=== PATIENT | male | born 1965 | race Caucasian/White ===

== ENCOUNTER 2018-03-29 09:33 | Outpatient (REF) | payer BC, SELFPAY ==
[2018-03-29 23:26] LABS: ALT 39 U/L (12-78); AST 21 U/L (15-37); Albumin 4.2 g/dL (3.4-5.0); Alkaline Phosphatase 78 U/L (46-116); Anion Gap 10.8 mmol/L (3-11); BUN 17 mg/dL (7-18); Bilirubin, Total 0.4 mg/dL (0.2-1.0); CO2 26.2 mmol/L (21.0-32.0); CREATININE 0.92 mg/dL (0.70-1.30); Calcium 9.1 mg/dL (8.5-10.1); Chloride 104 mmol/L (98-107); Cholesterol 207 mg/dL (50-200); Glucose 103 mg/dL (70-100); HDL Cholesterol 47 mg/dL (40-60); LDL CHOLESTEROL 151 mg/dL (<100); Sodium 141 mmol/L (136-145); Total Protein 7.3 g/dL (6.4-8.2); Triglyceride 91 mg/dL (30-150)
== END 2018-03-29 09:53 ==
LOC: NCHCN 09:33
PROVIDERS: Visit Provider Nurse Practitioner Family
DX: Z00.00 Encounter for general adult medical examination without abnormal findings (principal); Z13.220 Encounter for screening for lipoid disorders
CPT/HCPCS: 80053; 80061; 83721

== ENCOUNTER 2021-01-25 15:39 | Outpatient (REF) | payer BC, SELFPAY ==
[2021-01-25 21:19] LABS: Anion Gap 8.3 mmol/L (3-11); BUN 20 mg/dL (7-18); CO2 27.7 mmol/L (21.0-32.0); CREATININE 0.9 mg/dL (0.70-1.30); Calcium 9.2 mg/dL (8.5-10.1); Calculated LDL 146 mg/dL (<100); Chloride 105 mmol/L (98-107); Cholesterol 221 mg/dL (<200); Glucose 95 mg/dL (74-106); HDL Cholesterol 41 mg/dL (40-60); Potassium 4.2 mmol/L (3.5-5.1); Sodium 141 mmol/L (136-145); Triglyceride 172 mg/dL (<150)
== END 2021-01-25 15:40 | disposition home or self-care (01) ==
LOC: NCHCN 15:39
PROVIDERS: Visit Provider Registered Nurse
DX: Z00.00 Encounter for general adult medical examination without abnormal findings (principal); I10 Essential (primary) hypertension
CPT/HCPCS: 80048; 80061

== ENCOUNTER 2021-07-24 09:25 | Outpatient (REF) | payer BC, SELFPAY ==
[2021-07-24 15:06] LABS: ALT 40 U/L (16-63); AST 19 U/L (15-37); Albumin 3.9 g/dL (3.4-5.0); Alkaline Phosphatase 81 U/L (46-116); Anion Gap 10.1 mmol/L (3-11); BUN 22 mg/dL (7-18); Bilirubin, Total 0.4 mg/dL (0.2-1.0); CO2 24.9 mmol/L (21.0-32.0); CREATININE 0.9 mg/dL (0.70-1.30); Calculated LDL 106 mg/dL (<100); Chloride 104 mmol/L (98-107); Cholesterol 177 mg/dL (<200); Glucose 112 mg/dL (74-106); HDL Cholesterol 40 mg/dL (40-60); Potassium 4.1 mmol/L (3.5-5.1); Sodium 139 mmol/L (136-145); Total Protein 7.1 g/dL (6.4-8.2); Triglyceride 159 mg/dL (<150)
== END 2021-07-24 09:26 | disposition home or self-care (01) ==
LOC: NCHCN 09:25
PROVIDERS: Visit Provider Registered Nurse
DX: I10 Essential (primary) hypertension (principal); E66.9 Obesity, unspecified
CPT/HCPCS: 80053; 80061

== ENCOUNTER 2021-12-13 08:51 | Outpatient (REF) | payer BC, SELFPAY ==
--- NOTE | 2021-12-13 13:35 | SKI_PTH ---
PATIENT: Favio Schultz LOC: [facility]#:[id number] AGE/SX: 56/M ROOM: RE12/13/[address]: Maribell Jaime : 1965 BED: DIS: 12/13/2021 SPEC #: [id number] RECD: 12/16/21 11:18 STATUS: FLAVIO GOMEZ #: [id number] GRAY: 12/13/21 13:[address]: Maribell Jaime DEPT: Surgical Specimen RECD BY: Tyler Ignacio Tissues: 1 - SKIN BIOPSY(SHAVE/PUNCH) Procedures: SKIN LEVEL 4 Comments: [id number]
== END 2021-12-13 08:52 | disposition home or self-care (01) ==
LOC: NCHCN 08:51
PROVIDERS: Visit Provider Registered Nurse
DX: L82.1 Other seborrheic keratosis (principal)
CPT/HCPCS: 88305

== ENCOUNTER 2022-05-09 17:45 | Outpatient (REF) | payer BC, SELFPAY ==
[2022-05-09 15:33] LABS: Anion Gap 4.8 mmol/L (3-11); BUN 20 mg/dL (7-18); CO2 29.2 mmol/L (21.0-32.0); CREATININE 0.9 mg/dL (0.70-1.30); Calcium 8.9 mg/dL (8.5-10.1); Chloride 104 mmol/L (98-107); Estimated GFR 98.38 (mL/min/1.73m2); Glucose 108 mg/dL (74-106); Potassium 4.4 mmol/L (3.5-5.1); Sodium 138 mmol/L (136-145)
== END 2022-05-09 17:46 | disposition home or self-care (01) ==
LOC: NCHCN 17:45
PROVIDERS: Visit Provider Registered Nurse
DX: I10 Essential (primary) hypertension (principal)
CPT/HCPCS: 80048

== ENCOUNTER 2023-02-19 13:19 | Outpatient (REF) | payer BC, SELFPAY ==
[2023-02-19 17:27] LABS: Calculated LDL 78 mg/dL (<100); Cholesterol 139 mg/dL (<200); HDL Cholesterol 43 mg/dL (40-60); Triglyceride 90 mg/dL (<150)
== END 2023-02-19 13:20 | disposition home or self-care (01) ==
LOC: NCHCN 13:19
PROVIDERS: Visit Provider Family Medicine
DX: E78.5 Hyperlipidemia, unspecified (principal)
CPT/HCPCS: 80061

== ENCOUNTER 2023-05-13 15:36 | Outpatient (REF) | payer BC, SELFPAY ==
[2023-05-13 15:47] LABS: Abs Immature Grans 0.05 10^3/uL (0.0-0.06); Absolute Basophil Count 0.04 10^3/uL (0.0-0.2); Absolute Eosinophil Count 0.15 10^3/uL (0.0-0.7); Absolute Lymphocyte Count 1.34 10^3/uL (1.2-3.4); Absolute Monocyte Count 0.59 10^3/uL (0.1-0.8); Absolute Neutrophil Count 5.74 10^3/uL (1.2-6.7); Basophils % 0.5; Eosinophils % 1.9; HCT 46.4 % (40.0-50.0); HGB 15.6 g/dL (13.5-17.5); Immature Grans % 0.6; Lymphocytes % 16.9; MCH 29.4 pg (27.0-33.0); MCHC 33.6 % (32.0-36.0); MCV 88 fL (80-95); MPV 10.2 fL (8.0-11.0); Monocytes % 7.5; Neutrophils % 72.6; Platelet Count 278 10^3/uL (130-400); RDW 12.7 % (11.8-14.1); WBC 7.91 10^3/uL (4.4-10.8)
[2023-05-13 16:04] LABS: Anion Gap 7.8 mmol/L (3-11); BUN 16 mg/dL (7-18); CO2 27.2 mmol/L (21.0-32.0); Calcium 9.5 mg/dL (8.5-10.1); Calculated LDL 148 mg/dL (<100); Chloride 104 mmol/L (98-107); Cholesterol 244 mg/dL (<200); Estimated GFR 86.16 (mL/min/1.73m2); Glucose 116 mg/dL (74-106); HDL Cholesterol 45 mg/dL (40-60); Potassium 4.1 mmol/L (3.5-5.1); Sodium 139 mmol/L (136-145); Triglyceride 259 mg/dL (<150)
[2023-05-13 16:10] LABS: Hemoglobin A1C 5.4 % (<5.7)
== END 2023-05-13 15:37 | disposition home or self-care (01) ==
LOC: LBN 15:36
PROVIDERS: Family Medicine; Visit Provider Nurse Practitioner Family
DX: I10 Essential (primary) hypertension (principal); E78.5 Hyperlipidemia, unspecified; R73.09 Other abnormal glucose; R05.8 Other specified cough
CPT/HCPCS: 80048; 80061; 83036; 85025

== ENCOUNTER 2024-05-24 16:33 | Outpatient (REF) | payer BC, SELFPAY ==
[2024-05-24 21:35] LABS: ALT 29 U/L (16-63); AST 19 U/L (15-37); Albumin 3.9 g/dL (3.4-5.0); Alkaline Phosphatase 82 U/L (46-116); Anion Gap 7.6 mmol/L (3-11); BUN 17 mg/dL (7-18); Bilirubin, Total 0.24 mg/dL (0.2-1.0); CO2 29.4 mmol/L (21.0-32.0); CREATININE 1.1 mg/dL (0.70-1.30); Calcium 9.4 mg/dL (8.5-10.1); Chloride 107 mmol/L (98-107); Estimated GFR 76.37 (mL/min/1.73m2); Glucose 117 mg/dL (74-106); Potassium 3.8 mmol/L (3.5-5.1); Sodium 144 mmol/L (136-145); Total Protein 7.4 g/dL (6.4-8.2)
== END 2024-05-24 16:34 | disposition home or self-care (01) ==
LOC: NCHCN 16:33
PROVIDERS: Visit Provider Family Medicine
DX: I10 Essential (primary) hypertension (principal)
CPT/HCPCS: 80053